=== PATIENT | female | born 1980 | race African-American/Black ===

== ENCOUNTER 2016-05-11 09:20 | Outpatient (CLI) ==
[2015-06-13 23:26] VITALS: BMI 52.7
[2016-05-11 12:53] LABS: BASOPHILS % (AUTO) 0.5 % (0.0-3.0); EOSINOPHILS # (AUTO) 0.2 K/ul (0.0-0.7); EOSINOPHILS % (AUTO) 3.8 % (0.0-7.0); HEMATOCRIT 33.3 % (37.0-47.0); HEMOGLOBIN 9.9 g/dl (12.0-16.0); IMMATURE GRANULOCYTE % (AUTO) 0.3 % (0.0-5.0); LYMPHOCYTES # (AUTO) 1.3 K/uL (0.60-3.4); LYMPHOCYTES % (AUTO) 21.8 (10.0-50.0); MEAN CORPUSCULAR HGB CONC 29.7 (31.8-35.4); MEAN CORPUSCULAR VOLUME 74.2 fl (81.0-99.0); MONOCYTES # (AUTO) 0.5 K/uL (0.4-2.0); MONOCYTES % (AUTO) 8.1 (0-10); NEUTROPHILS # (AUTO) 3.8 K/ul (2.0-6.9); NEUTROPHILS % (AUTO) 65.5; PLATELET COUNT 326 10^3/uL (140-440); RED BLOOD COUNT 4.49 10^6/ul (4.20-5.40); WHITE BLOOD COUNT 5.79 K/ul (4.6-10.2)
[2016-05-11 13:05] LABS: FLU INTERNAL QC INTERNAL QC VALID; RAPID FLU A NEGATIVE (NEGATIVE); RAPID FLU B NEGATIVE (NEGATIVE)
[2016-05-11 13:35] LABS: ALBUMIN 3.4 g/dL (3.4-5.0); ALBUMIN/GLOBULIN RATIO 0.71; ANION GAP 11.6; BILIRUBIN,TOTAL 0.79 mg/dL (0.00-1.20); BUN/CREATININE RATIO 12.5; CALCIUM 9.3 mg/dL (8.2-10.2); CREATININE 0.88 mg/dL (0.60-1.30); POTASSIUM 3.6 mmol/L (3.5-5.10); TOTAL PROTEIN 8.2 g/dL (6.4-8.2)
== END 2016-05-11 09:21 | disposition home or self-care (01) ==
LOC: LAB 09:20
PROVIDERS: ATTEND Nurse Practitioner Family
DX: Z00.00 Encounter for general adult medical examination without abnormal findings (principal); J02.9 Acute pharyngitis, unspecified
CPT/HCPCS: 36415; 80053; 80061; 84443; 85025; 87651; 87804; 87880

== ENCOUNTER 2016-06-10 14:10 | Outpatient (CLI) ==
[2015-06-13 23:26] VITALS: BMI 52.7
[2016-06-10] MEDS ORDERED: VENOFER IV ONE (14:23)
[2016-06-10] MEDS ORDERED: SODIUM CHLORIDE IV ONE (14:23)
[2016-06-10 14:55] VITALS: BP 160/108; TEMP 96.9
== END 2016-06-10 14:11 | disposition home or self-care (01) ==
LOC: OPMED 14:10
PROVIDERS: ATTEND Internal Medicine Hematology & Oncology
DX: D50.9 Iron deficiency anemia, unspecified (principal)
CPT/HCPCS: 96365; 96366

== ENCOUNTER 2016-06-17 08:44 | Outpatient (CLI) ==
[2015-06-13 23:26] VITALS: BMI 52.7
[2016-06-17] MEDS ORDERED: SODIUM CHLORIDE IV ONE (09:08)
[2016-06-17] MEDS ORDERED: VENOFER IV ONE (09:08)
[2016-06-17 09:17] VITALS: BP 160/90; TEMP 98.1
== END 2016-06-17 08:45 | disposition home or self-care (01) ==
LOC: OPMED 08:44
PROVIDERS: ATTEND Internal Medicine Hematology & Oncology
DX: D50.9 Iron deficiency anemia, unspecified (principal)
CPT/HCPCS: 96365; 96366

== ENCOUNTER 2016-12-24 09:17 | Outpatient (CLI) ==
[2015-06-13 23:26] VITALS: BMI 52.7
[2016-12-24 10:05] LABS: BASOPHILS % (AUTO) 0.8 % (0.0-3.0); EOSINOPHILS # (AUTO) 0.2 K/ul (0.0-0.7); EOSINOPHILS % (AUTO) 4.2 % (0.0-7.0); HEMATOCRIT 34.6 % (37.0-47.0); HEMOGLOBIN 11.2 g/dl (12.0-16.0); IMMATURE GRANULOCYTE % (AUTO) 0.2 % (0.0-5.0); LYMPHOCYTES # (AUTO) 1.4 K/uL (0.60-3.4); LYMPHOCYTES % (AUTO) 27.9 (10.0-50.0); MEAN CORPUSCULAR HEMOGLOBIN 25.5 pg (27.0-31.0); MEAN CORPUSCULAR HGB CONC 32.4 (31.8-35.4); MEAN CORPUSCULAR VOLUME 78.6 fl (81.0-99.0); MONOCYTES # (AUTO) 0.4 K/uL (0.4-2.0); MONOCYTES % (AUTO) 8.4 (0-10); NEUTROPHILS # (AUTO) 2.9 K/ul (2.0-6.9); NEUTROPHILS % (AUTO) 58.5; PLATELET COUNT 265 10^3/uL (140-440); WHITE BLOOD COUNT 5.02 K/ul (4.6-10.2)
--- NOTE | 2016-12-24 10:27 | US ---
EXAM: Renal ultrasound. History: Follow-up left renal cyst. Comparison: Renal ultrasound 03/17/2013 Technique: Multiple sonographic images through the kidneys were obtained. Color duplex Doppler was used to interrogate vascular flow. Findings: Neither ureteral jet was visualized within the bladder. No focal bladder wall thickening. The right kidney measures 10.7 cm in long length demonstrating normal cortical echogenicity without e vidence for hydronephrosis, mass or shadowing calculus. The left kidney measures 11.3 cm in long length demonstrating normal cortical echogenicity without ev idence for hydronephrosis or shadowing calculus. 4.9 cm x 2.5 cm x 3.7 cm anechoic left renal cyst n ot significantly changed compared to the prior study given differences in technique. Impression: A simple left renal cyst. No hydronephrosis
--- NOTE | 2016-12-24 10:29 | US ---
EXAM: Renal arterial Doppler ultrasound HISTORY: Essential hypertension TECHNIQUE: Larose scale and color Doppler imaging of the renal arteries was performed. FINDINGS: The right kidney measures 10.7 cm in length. The velocities within the right renal artery proximal segment measure 110 cm/sec. The renal to aorta ratio is measuring 1.6. Normal waveforms a re identified. Normal waveforms and velocities are identified within the more distal branches of the right renal artery. Normal blood flow is identified within the right renal vein. The left kidney measures 11.3 cm in length. The velocities within the proximal left renal artery juan sure 70 cm/sec. The renal to aorta ratio is measuring 1.0. Normal waveforms and velocities are iden tified within the more distal branches of the distal left renal artery. Normal blood flow is identif ied within the left renal vein. IMPRESSION: No evidence of renal artery stenosis.
[2016-12-24 10:45] LABS: ALBUMIN 3.2 g/dL (3.4-5.0); ALBUMIN/GLOBULIN RATIO 0.74; ANION GAP 10.1; BILIRUBIN,TOTAL 0.48 mg/dL (0.00-1.20); BUN/CREATININE RATIO 18.07; CALCIUM 9.5 mg/dL (8.2-10.2); CHOL/HDL RATIO 3.5 (4.5-5.5); CREATININE 0.83 mg/dL (0.60-1.30); POTASSIUM 4.1 mmol/L (3.5-5.10); TOTAL PROTEIN 7.5 g/dL (6.4-8.2)
== END 2016-12-24 09:18 | disposition home or self-care (01) ==
LOC: RAD 09:17
PROVIDERS: ATTEND Nurse Practitioner Family
DX: I10 Essential (primary) hypertension (principal); N28.1 Cyst of kidney, acquired
CPT/HCPCS: 36415; 76770; 80053; 80061; 84443; 85025; 93005; 93010

== ENCOUNTER 2017-04-27 13:12 | Outpatient (CLI) ==
[2015-06-13 23:26] VITALS: BMI 52.7
--- NOTE | 2017-04-27 16:15 | MRI ---
EXAM: MRI lumbar spine without IV contrast. DATE: 04/27/2017. HISTORY: Lumbago with left-sided sciatica. TECHNIQUE: Sagittal and axial T1W and T2W sequences of the lumbar spine along with sagittal IR and c oronal T2W sequences were obtained using 1.2 Alayna magnet. No IV contrast. COMPARISON: CT abdomen/pelvis 25 February 2013. FINDINGS: There are five [id number] lumbar vertebra. A 7 degree rightward curvature of the lum bar spine is noted. A 2 mm anterolisthesis of S1 relative to L5 is observed. No other subluxation, acute fracture, osseous malignancy, or pars interarticularis defect is demonstrated. Lumbar vertebra are normal in height. Bone marrow signal is normal. Small, chronic Schmorl's nodes are identified at L2, L3, and L4. Lumbar intervertebral discs are normal in height. No acute sacral fracture or st ress reaction is evident. SI joints are unremarkable. Conus medullaris terminates at L1-2. Visible spinal cord reveals no syrinx, cord edema, myelomalacia, or neoplasm. No retroperitoneal lymphadenopathy, paraspinal mass, or aortic aneurysm is detected. Paraspinal musc ulature is symmetric bilaterally. Visible portions of the liver, spleen, adrenal glands and right ki dney are normal. A T2W/T1W dark, 15 mm ovoid structure is present within the gallbladder. No gallbl adder wall thickening or pericholecystic fluid is seen on these limited images. A T2W bright, T1W da rk, 4.1 cm lesion in the anterior cortex upper pole left kidney corresponds with water density cyst o n CT scan (HU = 4). Segmental analysis: T10-11: Sagittal images reveal mild right and moderate/marked left foraminal stenoses due to facet d isease. No definitive central canal stenosis. T11-12: Sagittal images reveal mild right and moderate left foraminal stenoses are suspected due to facet arthropathy. Canal is borderline narrow. T12-L1: Normal. L1-2: Normal. L2-3: Short pedicles. Minor facet arthropathy and dorsal epidural fat cause minor narrowing of the thecal sac. Each foramen is patent. L3-4: Short pedicles. Minor facet arthropathy and dorsal epidural fat cause minor narrowing of the thecal sac and minor bilateral foraminal encroachment. L4-5: Short pedicles. Minor posterior disc bulge, mild facet arthropathy, and dorsal epidural fat c ause mild central canal stenosis and mild bilateral foraminal stenoses. L5-S1: Minor anterior subluxation of S1, pseudodisc bulge, and minor facet disease cause moderate ri ght and minor left foraminal narrowing. No central canal stenosis. IMPRESSIONS: 1. L-spine minor rightward curvature, minor facet disease, and minor DDD. 2. Multilevel central canal stenoses (L2-3: Minor. L3-4: Minor. L4-5: Mild). 3. Multilevel foraminal stenoses. No definitive nerve root compression. 4. Cholelithiasis. No definitive cholecystitis. 5. Left kidney benign-appearing cortical cyst.
== END 2017-04-27 13:13 | disposition home or self-care (01) ==
LOC: RAD 13:12
PROVIDERS: ATTEND Nurse Practitioner Family
DX: M54.42 Lumbago with sciatica, left side (principal); M54.17 Radiculopathy, lumbosacral region

== ENCOUNTER 2017-06-16 14:38 | Outpatient (CLI) ==
[2015-06-13 23:26] VITALS: BMI 52.7
== END 2017-06-16 14:39 | disposition home or self-care (01) ==
LOC: RHC-LAB 14:38
PROVIDERS: ATTEND Nurse Practitioner Family
DX: R50.9 Fever, unspecified (principal)
CPT/HCPCS: 87651; 87804

== ENCOUNTER 2017-10-22 12:14 | Outpatient (CLI) ==
[2015-06-13 23:26] VITALS: BMI 52.7
== END 2017-10-22 12:15 | disposition home or self-care (01) ==
LOC: RHC-LAB 12:14
PROVIDERS: ATTEND Nurse Practitioner Family
DX: I10 Essential (primary) hypertension (principal); L67.8 Other hair color and hair shaft abnormalities
CPT/HCPCS: 36415; 80053; 80061; 84443; 85025

== ENCOUNTER 2018-04-18 12:24 | Outpatient (CLI) ==
[2015-06-13 23:26] VITALS: BMI 52.7
== END 2018-04-18 12:25 | disposition home or self-care (01) ==
LOC: RHC-LAB 12:24
PROVIDERS: ATTEND Nurse Practitioner Family
DX: J02.9 Acute pharyngitis, unspecified (principal)
CPT/HCPCS: 87651